=== PATIENT | male | born 1955 | race African-American/Black ===

== ENCOUNTER 2019-04-09 17:44 | Emergency (ER) | payer BC, OTHER ==
[~2019-04-09] VITALS: Ht 190.5 cm; Wt 100.0 kg
[2019-04-09] MEDS ORDERED: HYDROCODONE/ACETAMINOPHEN 5/325MG TABLET PO ONE (22:00)
[2019-04-09] MEDS ORDERED: TETANUS, DIPHTHERIA, PERTUSSIS VAC/PF 0.5ML (>7YR OLD) IM ONE (22:30)
[2019-04-10 00:37] VITALS: BP 134/82
== END 2019-04-10 00:40 | disposition home or self-care (01) ==
LOC: ER 17:44
DX: S00.83XA Contusion of other part of head, initial encounter (principal); S20.212A Contusion of left front wall of thorax, initial encounter; S10.93XA Contusion of unspecified part of neck, initial encounter; F43.10 Post-traumatic stress disorder, unspecified; V43.52XA Car driver injured in collision with other type car in traffic accident, initial encounter; W22.11XA Striking against or struck by driver side automobile airbag, initial encounter; Y93.89 Activity, other specified; Y92.488 Other paved roadways as the place of occurrence of the external cause
CPT/HCPCS: 71045; 90471; 90715; 93005; 99284